=== PATIENT | female | born 1985 | race American Indian/Alaskan Native ===

== ENCOUNTER 2017-02-23 11:57 | Emergency (ER) | payer MEDICAID ==
[2017-02-23 12:22] VITALS: BP 131/80
[2017-02-23] MEDS ORDERED: TORADOL IM ONE (13:58)
[2017-02-23] MEDS ORDERED: DELTASONE PO ONE (13:58)
[2017-02-23] MEDS ORDERED: NORCO 5/325 PO ONE (14:03)
--- NOTE | 2017-02-23 14:04 | Emergency Department Report ---
Entered by SARAHI RAYO, acting as scribe for ADRIANE POP PA. ED Lower Extremity HPI - General Chief Complaint: Extremity Injury, Lower Stated Complaint: RT FOOT SWOLLEN Time Seen by Provider: 02/23/17 13:39 Source: patient Mode of arrival: Ambulatory Limitations: No Limitations - History of Present Illness Initial Comments: 31 year old female with no significant history presents to the ED with right anterior foot pain that began two days ago. Associated symptoms include right foot swelling and erythema, which worsens with palpation and walking. Denies any injury, fever, chills, chest pain, and SOB. Pt rates pain a 10 out 10 in severity. Uses tobacco products daily and consumes EtOH occasionally. MD Complaint: other (atraumatic pain) Onset/Timin -: days(s) Injury: Foot: Right (anterior, dorsal redness and tenderness) Place: home Severity: moderate Severity scale (0 -10): 10 Improves With: immobilization Worsens With: weight bearing, movement, palpation Other Symptoms: other (swelling, erythema) Associated Symptoms: swelling, unable to bear weight, ambulatory (limited due to right foot pain). denies: other (SOB, chest pain, fever, chills) - Related Data Previous Rx's Medication Instructions Recorded Last Taken Type Ibuprofen [Motrin 800 MG tab] 800 mg PO Q8HR PRN #30 tablet 11/01/15 Unknown Rx Sulfamethoxazole/Trimethoprim 1 each PO BID #14 tablet 11/01/15 Unknown Rx [Bactrim DS TAB] Clindamycin [Clindamycin CAP] 300 mg PO Q8H #30 cap 06/20/16 Unknown Rx traMADol [Ultram 50 MG tab] 50 mg PO Q6HR PRN #20 tablet 06/20/16 Unknown Rx HYDROcodone/APAP 5-325 [[place] 1 each PO Q4HR PRN #12 tablet 06/26/16 Unknown Rx 5/325] Indomethacin [Indocin] 25 mg PO Q8H #21 capsule 02/23/17 Unknown Rx Prednisone [predniSONE 10 mg 10 mg PO .TAPER #1 tab.ds.pk 02/23/17 Unknown Rx (6-Day Pack, 21 Tabs)] traMADol [Ultram 50 MG tab] 50 mg PO Q6HR PRN #21 tablet 02/23/17 Unknown Rx Allergies Allergy/AdvReac Type Severity Reaction Status Date / Time No Known Allergies Allergy Unverified 11/01/15 12:02 ED Review of Systems Comment: All other systems reviewed and negative Constitutional: denies: chills, fever Respiratory: denies: shortness of breath Cardiovascular: denies: chest pain, palpitations, dyspnea on exertion, orthopnea , syncope, paroxysmal nocturnal dyspnea Musculoskeletal: joint swelling (right anterior foot, noted erythema) Skin: other (right foot erythema) ED Past Medical Hx - Past Medical History Previous Medical History?: No - Surgical History Past Surgical History?: Yes Additional Surgical History: Ectopic - Social History Smoking Status: Current Every Day Smoker Substance Use Type: None - Medications Home Medications: Home Medications Medication Instructions Recorded Confirmed Last Taken Type Ibuprofen [Motrin 800 MG tab] 800 mg PO Q8HR PRN #30 tablet 11/01/15 Unknown Rx Sulfamethoxazole/Trimethoprim 1 each PO BID #14 tablet 11/01/15 Unknown Rx [Bactrim DS TAB] Clindamycin [Clindamycin CAP] 300 mg PO Q8H #30 cap 06/20/16 Unknown Rx traMADol [Ultram 50 MG tab] 50 mg PO Q6HR PRN #20 tablet 06/20/16 Unknown Rx HYDROcodone/APAP 5-325 [[place] 1 each PO Q4HR PRN #12 tablet 06/26/16 Unknown Rx 5/325] Indomethacin [Indocin] 25 mg PO Q8H #21 capsule 02/23/17 Unknown Rx Prednisone [predniSONE 10 mg 10 mg PO .TAPER #1 tab.ds.pk 02/23/17 Unknown Rx (6-Day Pack, 21 Tabs)] traMADol [Ultram 50 MG tab] 50 mg PO Q6HR PRN #21 tablet 02/23/17 Unknown Rx ED Physical Exam - General Limitations: No Limitations General appearance: alert, in no apparent distress - Head Head exam: Present: atraumatic, normocephalic - Eye Eye exam: Present: normal appearance, PERRL, EOMI - ENT ENT exam: Present: normal exam, mucous membranes moist - Neck Neck exam: Present: normal inspection, full ROM. Absent: meningismus, lymphadenopathy - Respiratory Respiratory exam: Present: normal lung sounds bilaterally. Absent: respiratory distress, wheezes, rales, rhonchi, stridor, chest wall tenderness, accessory muscle use, decreased breath sounds, prolonged expiratory - Cardiovascular Cardiovascular Exam: Present: regular rate - GI/Abdominal GI/Abdominal exam: Present: soft. Absent: distended - Extremities Exam Extremities exam: Present: normal inspection, full ROM - Expanded Lower Extremity Exam Right Hip exam: Present: normal inspection, full ROM Upper Leg exam: Present: normal inspection, full ROM Knee exam: Present: normal inspection, full ROM Lower Leg exam: Present: normal inspection, full ROM. Absent: tenderness, swelling, abrasion, palpable cord, Edi's sign Ankle exam: Present: normal inspection, full ROM. Absent: tenderness Foot/Toe exam: Present: normal inspection, full ROM, tenderness (right anterior foot), swelling (right anterior foot), erythema (right anterior foot). Absent: ecchymosis, deformity Neuro vascular tendon exam: Present: no vascular compromise. 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
== END 2017-02-23 14:26 | disposition home or self-care (01) ==
LOC: ED 11:57
DX: M10.9 Gout, unspecified (principal); F17.200 Nicotine dependence, unspecified, uncomplicated
CPT/HCPCS: 96372; 99282; J1885; J7512

== ENCOUNTER 2018-06-13 10:08 | Emergency (ER) | payer MEDICAID ==
[2018-06-13 10:15] VITALS: BP 132/70
[2018-06-13] MEDS ORDERED: TYLENOL PO ONE (10:46)
--- NOTE | 2018-06-13 10:47 | Emergency Department Report ---
ED ENT HPI - General Chief complaint: Sore Throat Stated complaint: SORE THROAT/POSS PINK (L)EYE/HEADACHE Time Seen by Provider: 06/13/18 10:32 Source: patient Mode of arrival: Ambulatory Limitations: No Limitations - History of Present Illness Initial comments: 32-year-old female presents with complaint of 5 days of sinus congestion and sore throat is dry nonproductive cough and eye irritation. Patient denies any sick contacts. Patient is awake alert and oriented 3 does not appear to be in acute distress. Visible conjunctival inflammation left eye. States she has had yellowish dry crusting waking up in morning wiping this off of her left eye. Patient is awake alert and oriented 3. MD complaint: sore throat - Related Data Previous Rx's Medication Instructions Recorded Last Taken Type Ibuprofen [Motrin 800 MG tab] 800 mg PO Q8HR PRN #30 tablet 11/01/15 Unknown Rx Sulfamethoxazole/Trimethoprim 1 each PO BID #14 tablet 11/01/15 Unknown Rx [Bactrim DS TAB] Clindamycin [Clindamycin CAP] 300 mg PO Q8H #30 cap 06/20/16 Unknown Rx traMADol [Ultram 50 MG tab] 50 mg PO Q6HR PRN #20 tablet 06/20/16 Unknown Rx HYDROcodone/APAP 5-325 [[place] 1 each PO Q4HR PRN #12 tablet 06/26/16 Unknown Rx 5/325] Indomethacin [Indocin] 25 mg PO Q8H #21 capsule 02/23/17 Unknown Rx Prednisone [predniSONE 10 mg 10 mg PO .TAPER #1 tab.ds.pk 02/23/17 Unknown Rx (6-Day Pack, 21 Tabs)] traMADol [Ultram 50 MG tab] 50 mg PO Q6HR PRN #21 tablet 02/23/17 Unknown Rx Azithromycin [Zithromax Z-GEORGINA] 250 mg PO QDAY #1 pack 06/13/18 Unknown Rx Erythromycin [Erythromycin Ophth 1 applic OP BID #1 tube 06/13/18 Unknown Rx Oint] Ibuprofen [Motrin] 800 mg PO Q8HR PRN #25 tablet 06/13/18 Unknown Rx Phenylephrine/Dm/Acetaminop/GG 10 ml PO Q6H PRN #1 liquid 06/13/18 Unknown Rx [Mucinex Ysgt-Bav-Jijqzodojc Lq] Allergies Allergy/AdvReac Type Severity Reaction Status Date / Time No Known Allergies Allergy Verified 06/13/18 10:15 ED Dental HPI - General Chief complaint: Sore Throat Stated complaint: SORE THROAT/POSS PINK (L)EYE/HEADACHE Time Seen by Provider: 06/13/18 10:32 Source: patient Mode of arrival: Ambulatory Limitations: No Limitations - Related Data Previous Rx's Medication Instructions Recorded Last Taken Type Ibuprofen [Motrin 800 MG tab] 800 mg PO Q8HR PRN #30 tablet 11/01/15 Unknown Rx Sulfamethoxazole/Trimethoprim 1 each PO BID #14 tablet 11/01/15 Unknown Rx [Bactrim DS TAB] Clindamycin [Clindamycin CAP] 300 mg PO Q8H #30 cap 06/20/16 Unknown Rx traMADol [Ultram 50 MG tab] 50 mg PO Q6HR PRN #20 tablet 06/20/16 Unknown Rx HYDROcodone/APAP 5-325 [[place] 1 each PO Q4HR PRN #12 tablet 06/26/16 Unknown Rx 5/325] Indomethacin [Indocin] 25 mg PO Q8H #21 capsule 02/23/17 Unknown Rx Prednisone [predniSONE 10 mg 10 mg PO .TAPER #1 tab.ds.pk 02/23/17 Unknown Rx (6-Day Pack, 21 Tabs)] traMADol [Ultram 50 MG tab] 50 mg PO Q6HR PRN #21 tablet 02/23/17 Unknown Rx Azithromycin [Zithromax Z-GEORGINA] 250 mg PO QDAY #1 pack 06/13/18 Unknown Rx Erythromycin [Erythromycin Ophth 1 applic OP BID #1 tube 06/13/18 Unknown Rx Oint] Ibuprofen [Motrin] 800 mg PO Q8HR PRN #25 tablet 06/13/18 Unknown Rx Phenylephrine/Dm/Acetaminop/GG 10 ml PO Q6H PRN #1 liquid 06/13/18 Unknown Rx [Mucinex Llhk-Vnc-Wzhvcyhywq Lq] Allergies Allergy/AdvReac Type Severity Reaction Status Date / Time No Known Allergies Allergy Verified 06/13/18 10:15 ED Review of Systems ROS: Stated complaint: SORE THROAT/POSS PINK (L)EYE/HEADACHE Other details as noted in HPI ED Past Medical Hx - Past Medical History Previous Medical History?: No - Surgical History Past Surgical History?: Yes Additional Surgical History: Ectopic, 4 c section - Social History Smoking Status: Current Some Day Smoker Substance Use Type: None - Medications Home Medications: Home Medications Medication Instructions Recorded Confirmed Last Taken Type Ibuprofen [Motrin 800 MG tab] 800 mg PO Q8HR PRN #30 tablet 11/01/15 Unknown Rx Sulfamethoxazole/Trimethoprim 1 each PO BID #14 tablet 11/01/15 Unknown Rx [Bactrim DS TAB] Clindamycin [Clindamycin CAP] 300 mg PO Q8H #30 cap 06/20/16 Unknown Rx traMADol [Ultram 50 MG tab] 50 mg PO Q6HR PRN #20 tablet 06/20/16 Unknown Rx HYDROcodone/APAP 5-325 [[place] 1 each PO Q4HR PRN #12 tablet 06/26/16 Unknown Rx 5/325] Indomethacin [Indocin] 25 mg PO Q8H #21 capsule 02/23/17 Unknown Rx Prednisone [predniSONE 10 mg 10 mg PO .TAPER #1 tab.ds.pk 02/23/17 Unknown Rx (6-Day Pack, 21 Tabs)] traMADol [Ultram 50 MG tab] 50 mg PO Q6HR PRN #21 tablet 02/23/17 Unknown Rx Azithromycin [Zithromax Z-GEORGINA] 250 mg PO QDAY #1 pack 06/13/18 Unknown Rx Erythromycin [Erythromycin Ophth 1 applic OP BID #1 tube 06/13/18 Unknown Rx Oint] Ibuprofen [Motrin] 800 mg PO Q8HR PRN #25 tablet 06/13/18 Unknown Rx Phenylephrine/Dm/Acetaminop/GG 10 ml PO Q6H PRN #1 liquid 06/13/18 Unknown Rx [Mucinex Anlw-Wky-Isvdoslhuj Lq] ED Physical Exam - General Limitations: No Limitations General appearance: alert, in no apparent distress - Head Head exam: Present: atraumatic, normocephalic - Eye Eye exam: Present: normal appearance, PERRL, EOMI - ENT ENT exam: Present: mucous membranes moist - Neck Neck exam: Present: normal inspection - Respiratory Respiratory exam: Present: normal lung sounds bilaterally. Absent: respiratory distress - Cardiovascular Cardiovascular Exam: Present: regular rate, normal rhythm. Absent: systolic murmur, diastolic murmur, rubs, gallop - GI/Abdominal GI/Abdominal exam: Present: soft, normal bowel sounds - Extremities Exam Extremities exam: Present: normal inspection - Back Exam Back exam: Present: normal inspection - Neurological Exam Neurological exam: Present: alert, oriented X3, CN II-XII intact, normal gait - Expanded Neurological Exam Expanded Patient oriented to: Present: person, place, time Cranial nerves: EOM's Intact: Normal, Nystagmus: Normal Cerebellar function: Finger to Nose: Normal, Heel to [place]: Normal, [place]: Normal Sensory exam: Upper Extremity Light Touch: Normal, Lower Extremity Light Touch: Normal Motor strength exam: RUE: 5, LUE: 5, RLE: 5, LLE: 5 Best Eye Response (Hardik): (4) open spontaneously Best Motor Response (Hardik): (6) obeys commands Best Verbal Response (Hardik): (5) oriented [place] Total: 15 - Psychiatric Psychiatric exam: Present: normal affect, normal mood - Skin Skin exam: Present: warm, dry, intact, normal color. Absent: rash ED Course Vital Signs 06/13/18 10:11 Temperature 99.3 F Pulse Rate 82 Respiratory 16 Rate Blood Pressure 132/70 O2 Sat by Pulse 98 Oximetry ED Medical Decision Making - Medical Decision Making A/P: Viral syndrome, conjunctivitis 1-Motrin when necessary 2-erythromycin ointment left eye 3-azithromycin pack 4-Mucinex prn Critical care attestation.: If time is entered above; I have spent that time in minutes in the direct care of this critically ill patient, excluding procedure time. ED Disposition Clinical Impression: Viral syndrome Conjunctivitis Qualifiers: Conjunctivitis type: acute Acute conjunctivitis type: unspecified Laterality: left Qualified Code(s): H10.32 - Unspecified acute conjunctivitis, left eye Disposition: TO HOME OR SELFCARE Is pt being admited?: No Does the pt Need Aspirin: No Condition: Stable Instructions: Conjunctivitis (ED), Viral Syndrome (ED) Prescriptions: Azithromycin [Zithromax Z-GEORGINA] 250 mg PO QDAY #1 pack Erythromycin [Erythromycin Ophth Oint] 1 applic OP BID #1 tube Ibuprofen [Motrin] 800 mg PO Q8HR PRN #25 tablet PRN Reason: Sore Throat Phenylephrine/Dm/Acetaminop/GG [Mucinex Nbqk-Ctk-Llcfvprjkg Lq] 10 ml PO Q6H PRN #1 liquid PRN Reason: Cough Referrals: [facility] [Provider Group] - 3-5 Days Forms: Work/School Release Form(ED) Time of Disposition: 11:20
== END 2018-06-13 11:20 | disposition home or self-care (01) ==
LOC: ED 10:08
DX: H10.32 Unspecified acute conjunctivitis, left eye (principal); B34.9 Viral infection, unspecified; F17.200 Nicotine dependence, unspecified, uncomplicated
CPT/HCPCS: 87116; 87430; 99282

== ENCOUNTER 2019-04-11 07:37 | Emergency (ER) | payer MEDICAID ==
[2019-04-11 07:43] VITALS: BP 139/78
--- NOTE | 2019-04-11 09:06 | Emergency Department Report ---
Eye Injury/Foreign Body - HPI Eye Location: Right Severity: Mild Eye Symptoms: Eye Redness: Yes, Recalls Injury: No, Photophobia: No ED Review of Systems ROS: Stated complaint: RT EYE PINK/COLD/SORE THROAT Other details as noted in HPI Comment: All other systems reviewed and negative ENT: congestion Respiratory: denies: cough Cardiovascular: denies: chest pain Gastrointestinal: denies: abdominal pain, nausea, vomiting Neurological: denies: headache ED Past Medical Hx - Past Medical History Previous Medical History?: No - Surgical History Past Surgical History?: Yes Additional Surgical History: Ectopic, 4 c section - Social History Smoking Status: Never Smoker Substance Use Type: Alcohol - Medications Home Medications: Home Medications Medication Instructions Recorded Confirmed Last Taken Type Ibuprofen [Motrin 800 MG tab] 800 mg PO Q8HR PRN #30 tablet 11/01/15 Unknown Rx Sulfamethoxazole/Trimethoprim 1 each PO BID #14 tablet 11/01/15 Unknown Rx [Bactrim DS TAB] Clindamycin [Clindamycin CAP] 300 mg PO Q8H #30 cap 06/20/16 Unknown Rx traMADol [Ultram 50 MG tab] 50 mg PO Q6HR PRN #20 tablet 06/20/16 Unknown Rx HYDROcodone/APAP 5-325 [[place] 1 each PO Q4HR PRN #12 tablet 06/26/16 Unknown Rx 5/325] Indomethacin [Indocin] 25 mg PO Q8H #21 capsule 02/23/17 Unknown Rx Prednisone [predniSONE 10 mg 10 mg PO .TAPER #1 tab.ds.pk 02/23/17 Unknown Rx (6-Day Pack, 21 Tabs)] traMADol [Ultram 50 MG tab] 50 mg PO Q6HR PRN #21 tablet 02/23/17 Unknown Rx Azithromycin [Zithromax Z-GEORGINA] 250 mg PO QDAY #1 pack 06/13/18 Unknown Rx Erythromycin [Erythromycin Ophth 1 applic OP BID #1 tube 06/13/18 Unknown Rx Oint] Ibuprofen [Motrin] 800 mg PO Q8HR PRN #25 tablet 06/13/18 Unknown Rx Phenylephrine/Dm/Acetaminop/GG 10 ml PO Q6H PRN #1 liquid 06/13/18 Unknown Rx [Mucinex Rvay-Usa-Mebjnztica Lq] Eye Injury Exam - Exam General: Vital signs noted. No distress. Alert and acting appropriately. - Visual Acuity Right Eye Exam: Right Injection, Neither Chemosis ED Course Vital Signs 04/11/19 07:41 Temperature 97.4 F L Pulse Rate 86 Respiratory 18 Rate Blood Pressure 139/78 O2 Sat by Pulse 100 Oximetry Critical care attestation.: If time is entered above; I have spent that time in minutes in the direct care of this critically ill patient, excluding procedure time. ED Disposition Clinical Impression: Bacterial conjunctivitis of right eye Disposition: DC-01 TO HOME OR SELFCARE Is pt being admited?: No Condition: Stable Instructions: Conjunctivitis (ED) Referrals: SANJIV SEAMAN MD [Primary Care Provider] - 3-5 Days
== END 2019-04-11 09:19 | disposition home or self-care (01) ==
LOC: ED 07:37
DX: H10.89 Other conjunctivitis (principal)
CPT/HCPCS: 99282